=== PATIENT | female | born 1970 | race Two or more races ===

== ENCOUNTER 2020-07-27 13:22 | Outpatient (CLI) | payer OTHER | END 2020-07-27 13:38 | disposition home or self-care (01) | LOC: MAMO-SONO 13:22 | PROVIDERS: ATTEND Specialist | DX: Z12.31 Encounter for screening mammogram for malignant neoplasm of breast (principal); N60.11 Diffuse cystic mastopathy of right breast; N60.12 Diffuse cystic mastopathy of left breast ==

== ENCOUNTER → 2020-08-31 11:46 | Outpatient (CLI) | payer OTHER | END | disposition home or self-care (01) | LOC: LAB 11:46 | PROVIDERS: ATTEND Specialist | DX: D64.89 Other specified anemias (principal); Z12.11 Encounter for screening for malignant neoplasm of colon; E03.8 Other specified hypothyroidism; N95.1 Menopausal and female climacteric states; I10 Essential (primary) hypertension; C51.8 Malignant neoplasm of overlapping sites of vulva; C51.9 Malignant neoplasm of vulva, unspecified; N30.00 Acute cystitis without hematuria; A64 Unspecified sexually transmitted disease; R79.89 Other specified abnormal findings of blood chemistry; E55.9 Vitamin D deficiency, unspecified; R97.8 Other abnormal tumor markers ==

== ENCOUNTER 2020-09-01 11:08 | Outpatient (CLI) | payer OTHER | END 2020-09-01 11:14 | disposition home or self-care (01) | LOC: LAB 11:08 | PROVIDERS: ATTEND Specialist | DX: D64.89 Other specified anemias (principal); Z12.11 Encounter for screening for malignant neoplasm of colon; E03.8 Other specified hypothyroidism; N95.1 Menopausal and female climacteric states; I10 Essential (primary) hypertension; C51.9 Malignant neoplasm of vulva, unspecified; A64 Unspecified sexually transmitted disease; N39.0 Urinary tract infection, site not specified; R97.8 Other abnormal tumor markers; R79.89 Other specified abnormal findings of blood chemistry; E55.9 Vitamin D deficiency, unspecified ==

== ENCOUNTER → 2020-09-17 | Outpatient (CLI) | payer OTHER | END | disposition home or self-care (01) | LOC: NUCLEAR 08:57 | PROVIDERS: ATTEND Internal Medicine Cardiovascular Disease | DX: Q21.1 Atrial septal defect (principal); R94.31 Abnormal electrocardiogram [ECG] [EKG] ==

== ENCOUNTER 2022-02-21 08:00 | Outpatient (CLI) | payer OTHER | END 2022-02-21 08:30 | disposition home or self-care (01) | LOC: PPH VACUNA 08:00 | PROVIDERS: ATTEND Emergency Medicine Pediatric Emergency Medicine | DX: Z23 Encounter for immunization (principal) ==

== ENCOUNTER 2022-02-21 13:27 | Outpatient (CLI) | payer OTHER | END 2022-02-21 13:28 | disposition home or self-care (01) | LOC: LAB 13:27 | PROVIDERS: ATTEND Specialist | DX: D64.9 Anemia, unspecified (principal); N95.1 Menopausal and female climacteric states; N39.0 Urinary tract infection, site not specified; E83.51 Hypocalcemia; E55.9 Vitamin D deficiency, unspecified; A60.9 Anogenital herpesviral infection, unspecified ==

== ENCOUNTER 2022-02-23 12:55 | Outpatient (CLI) | payer OTHER | END 2022-02-23 12:59 | disposition home or self-care (01) | LOC: MAMO-SONO 12:55 | PROVIDERS: ATTEND Specialist | DX: R10.2 Pelvic and perineal pain (principal); N60.11 Diffuse cystic mastopathy of right breast; N60.12 Diffuse cystic mastopathy of left breast ==

== ENCOUNTER 2022-06-28 10:21 | Outpatient (CLI) | payer OTHER | END 2022-06-28 10:26 | disposition home or self-care (01) | LOC: LAB 10:21 | PROVIDERS: ATTEND Specialist | DX: D64.9 Anemia, unspecified (principal); E03.8 Other specified hypothyroidism; N95.1 Menopausal and female climacteric states; I10 Essential (primary) hypertension; C51.9 Malignant neoplasm of vulva, unspecified; N30.00 Acute cystitis without hematuria; E83.51 Hypocalcemia; A64 Unspecified sexually transmitted disease; N39.0 Urinary tract infection, site not specified; R97.8 Other abnormal tumor markers; R79.89 Other specified abnormal findings of blood chemistry; E55.9 Vitamin D deficiency, unspecified; A60.9 Anogenital herpesviral infection, unspecified; Z12.11 Encounter for screening for malignant neoplasm of colon ==

== ENCOUNTER 2022-08-30 09:25 | Outpatient (CLI) | payer OTHER | END 2022-08-30 09:35 | disposition home or self-care (01) | LOC: PPH VACUNA 09:25 | PROVIDERS: ATTEND Emergency Medicine Pediatric Emergency Medicine | DX: Z23 Encounter for immunization (principal) ==

== ENCOUNTER 2022-10-26 10:35 | Outpatient (CLI) | payer OTHER | END 2022-10-26 10:39 | disposition home or self-care (01) | LOC: LAB 10:35 | PROVIDERS: ATTEND Internal Medicine Cardiovascular Disease | DX: E78.00 Pure hypercholesterolemia, unspecified (principal) ==

== ENCOUNTER 2022-12-27 09:19 | Outpatient (CLI) | payer OTHER | END 2022-12-27 09:20 | disposition home or self-care (01) | LOC: LAB 09:19 | PROVIDERS: ATTEND Internal Medicine Cardiovascular Disease | DX: E78.1 Pure hyperglyceridemia (principal) ==

== ENCOUNTER 2023-01-11 09:04 | Outpatient (CLI) | payer OTHER | END 2023-01-11 09:05 | disposition home or self-care (01) | LOC: LAB 09:04 | PROVIDERS: ATTEND Internal Medicine Gastroenterology | DX: Z03.818 Encounter for observation for suspected exposure to other biological agents ruled out (principal); Z20.822 Contact with and (suspected) exposure to COVID-19 ==

== ENCOUNTER 2023-03-05 15:10 | Outpatient (CLI) | payer OTHER | END 2023-03-05 15:11 | disposition home or self-care (01) | LOC: LAB 15:10 | DX: Z11.52 Encounter for screening for COVID-19 (principal); Z20.822 Contact with and (suspected) exposure to COVID-19 ==

== ENCOUNTER 2023-03-22 13:15 | Outpatient (CLI) | payer OTHER | END 2023-03-22 13:28 | disposition home or self-care (01) | LOC: MAMO-SONO 13:15 | PROVIDERS: ATTEND Specialist | DX: N60.11 Diffuse cystic mastopathy of right breast (principal); N60.12 Diffuse cystic mastopathy of left breast ==

== ENCOUNTER 2024-02-08 11:31 | Outpatient (CLI) | payer OTHER | END 2024-02-08 11:43 | disposition home or self-care (01) | LOC: RAD 11:31 | PROVIDERS: ATTEND Specialist | DX: M19.041 Primary osteoarthritis, right hand (principal); M19.042 Primary osteoarthritis, left hand; M51.37 Other intervertebral disc degeneration, lumbosacral region; M49.87 Spondylopathy in diseases classified elsewhere, lumbosacral region; M54.07 Panniculitis affecting regions of neck and back, lumbosacral region ==

== ENCOUNTER 2024-02-08 13:20 | Outpatient (CLI) | payer OTHER ==
[2024-02-08 15:13] LABS: HEMATOCRIT 37.5 % (36.0-45.00); MEAN CELL VOLUME 87.1 fL (80.00-100.00); MEAN CORPUSCULAR HEMOGLOBIN 30.2 pg (27.00-32.0); MEAN CORPUSCULAR HGB CONC 34.7 g/dl (32.0-36.0); PLATELET COUNT 311 K/uL (150-450); RED CELL DISTRIBUTION WIDTH 13.9 % (11.5-14.5)
[2024-02-08 15:18] LABS: ERYTHROCYTE SEDIMENTATION RATE 31 mm/hr
[2024-02-08 15:22] LABS: URINE APPEARANCE Clear; URINE BILIRRUBIN Negative (NEGATIVE); URINE BLOOD Negative; URINE COLOR Yellow; URINE GLUCOSE Negative (NEGATIVE); URINE LEUKOCYTE Negative; URINE NITRATE Negative; URINE PROTEIN Negative (NEGATIVE); URINE UROBILINOGEN 0.2 E.U./dl
[2024-02-08 15:23] LABS: URINE BACTERIA 20.1 uL (0.0-1933)
[2024-02-08 15:26] LABS: URINE EPITHELIAL CELLS 1.2 uL (0.0-38.8); URINE RBC 0.5 uL (0.0-20.8); URINE WBC 0.6 uL (0.0-23.2)
[2024-02-08 16:03] LABS: ALBUMIN 3.8 gm/dL (3.4-5.0); ALKALINE PHOSPHATASE 73 U/L (50-136); ALT/SGPT 26 U/L (12-78); ANION GAP 7 (10.0-20.0); AST/SGOT 13 U/L (15-37); BLOOD UREA NITROGEN 12 mg/dL (7-18); BUN CREA RATIO 19 (7.0-25.0); CARBON DIOXIDE 28 mEq/L (21-32); CHLORIDE 108 mmol/L (98-107); CHOL HDL RATIO 2.3 (0-5.0); CHOLESTEROL 160 mg/dL (0-200); CREATININE SERUM 0.63 mg/dL (0.55-1.02); FREE TRIODOTIRONINE 2.75 pg/ml (2.18-3.98); GFR 98.85; GLOBULINA 3.5 G/DL (2.4-3.5); GLUCOSE FASTING 82 mg/dL (65-100); HDL 70 mg/dl (40-60); LDL 78 mg/dl (0-130); OSMOLALITY SERUM 276 MOSM/KG (275-295); POTASSIUM 4.43 mEq/L (3.5-5.1); SODIUM 139 mmol/L (136-145); T4 FREE 0.95 NG/ML (0.76-1.46); T4 TOTAL 9.83 UG/DL (4.8-13.9); TOTAL PROTEIN 7.3 gm/dL (6.4-8.2); TRIGLYCERIDES 59 mg/dL (0-150); TSH 0.675 uIU/mL (0.358-3.74); VLDL 11 (0-39)
[2024-02-08 16:06] LABS: C-REACTIVE PROTEIN < 0.29 MG/DL (0.00-0.29)
[2024-02-10 12:42] LABS: VITAMIN D3 25 HYDROXY 61.95 ng/ml (30-120)
== END 2024-02-08 13:21 | disposition home or self-care (01) ==
LOC: LAB 13:20
PROVIDERS: ATTEND Internal Medicine Rheumatology
DX: M06.4 Inflammatory polyarthropathy (principal); M25.50 Pain in unspecified joint; M79.10 Myalgia, unspecified site; N95.2 Postmenopausal atrophic vaginitis; E03.9 Hypothyroidism, unspecified; E55.9 Vitamin D deficiency, unspecified; R73.9 Hyperglycemia, unspecified; E78.9 Disorder of lipoprotein metabolism, unspecified; D64.9 Anemia, unspecified; N39.0 Urinary tract infection, site not specified; R19.09 Other intra-abdominal and pelvic swelling, mass and lump; R97.8 Other abnormal tumor markers; R97.1 Elevated cancer antigen 125 [CA 125]; G89.3 Neoplasm related pain (acute) (chronic)

== ENCOUNTER → 2024-03-05 13:13 | Outpatient (CLI) | payer OTHER | END | disposition home or self-care (01) | LOC: NUCLEAR 13:13 | PROVIDERS: ATTEND Internal Medicine Rheumatology | DX: M81.0 Age-related osteoporosis without current pathological fracture (principal) ==

== ENCOUNTER 2025-01-01 09:09 | Outpatient (CLI) | payer OTHER | END 2025-01-01 09:11 | disposition home or self-care (01) | LOC: SONOGRAMA 09:09 | PROVIDERS: ATTEND Pathology Anatomic Pathology & Clinical Pathology | DX: D34 Benign neoplasm of thyroid gland (principal); E07.89 Other specified disorders of thyroid; E04.2 Nontoxic multinodular goiter ==